=== PATIENT | female | born 1960 | race Caucasian/White ===

== ENCOUNTER 2016-12-04 16:25 | Emergency (ER) | payer MEDICAID ==
[~2016-12-04] VITALS: Ht 162.6 cm; Wt 67.9 kg
[~2016-12-04 16:25] MED LIST: ACET325T14 PO; CALC300T5 PO; CHOL500014 PO; CIPR250T2 PO; CYCL-259 PO; DOCU-30 PO; FAMO1TAB25 PO; GABA300C10 PO; HYDR-3138 PO; HYDR-3241 PO; HYDR-882 PO; MELO-184 PO; METH4TAB PO; METH4TAB2 PO; METH750T2 PO; METH750T87 PO; NAPR500T3 PO; OXYC5CAP4 PO; TRAM50TA2 PO
[2016-12-04 16:28] VITALS: BP 106/71
[2016-12-04] MEDS ORDERED: METHOCARBAMOL 750 MG TABLET PO ONE (17:00)
[2016-12-04] MEDS ORDERED: KETOROLAC 30 MG/1 ML IM ONE (17:00)
== END 2016-12-04 18:00 | disposition home or self-care (01) ==
LOC: ED 17:40
DX: S42.291A Other displaced fracture of upper end of right humerus, initial encounter for closed fracture (principal); S39.012A Strain of muscle, fascia and tendon of lower back, initial encounter; F10.10 Alcohol abuse, uncomplicated; X58.XXXA Exposure to other specified factors, initial encounter; Y93.89 Activity, other specified; Y92.89 Other specified places as the place of occurrence of the external cause; Y99.9 Unspecified external cause status
CPT/HCPCS: 29105; 72110; 99284

== ENCOUNTER 2017-03-02 10:18 | Emergency (ER) | payer MEDICAID ==
[~2017-03-02] VITALS: Ht 162.6 cm; Wt 65.0 kg
[~2017-03-02 10:18] MED LIST changes: -CHOL500014 PO; +CHOL500045 PO; +DOCU-131 PO; -DOCU-30 PO; -HYDR-3138 PO; +HYDR-3237 PO; -MELO-184 PO; +MELO15TA24 PO; +OXYC5CAP2 PO; -OXYC5CAP4 PO
[2017-03-02] MEDS ORDERED: CYCLOBENZAPRINE 10 MG TABLET ONE (10:47)
[2017-03-02] MEDS ORDERED: KETOROLAC 30 MG/1 ML ONE (10:47)
[2017-03-02 10:58] LABS: HEMATOCRIT 40.4 % (34.6-47.8); HEMOGLOBIN 13.8 g/dL (11.7-16.4); WHITE BLOOD COUNT 6.1 x10^3/uL (3.4-10)
[2017-03-02] MEDS ORDERED: KETOROLAC 30 MG/1 ML IM ONE (11:00)
[2017-03-02] MEDS ORDERED: CYCLOBENZAPRINE 10 MG TABLET PO ONE (11:00)
[2017-03-02] MEDS: PLEASE ENTER HEIGHT AND WEIGHT MC SCH (11:23)
[2017-03-02] MEDS ORDERED: THIAMINE 100MG TABLET PO ONE (11:30)
[2017-03-02 11:32] LABS: BLOOD UREA NITROGEN 10 mg/dL (7-18)
[2017-03-02 11:41] LABS: PATH.CAST-FLAG NOT PRESENT; SPERM-FLAG NOT PRESENT; SRC-FLAG NOT PRESENT; XTAL-FLAG NOT PRESENT; YLC-FLAG NOT PRESENT
[2017-03-02 14:31] VITALS: BP 125/80
== END 2017-03-02 14:33 | disposition home or self-care (01) ==
LOC: ED 11:00
DX: S32.039A Unspecified fracture of third lumbar vertebra, initial encounter for closed fracture (principal); X58.XXXA Exposure to other specified factors, initial encounter; Y93.89 Activity, other specified; Y92.89 Other specified places as the place of occurrence of the external cause; Y99.8 Other external cause status
CPT/HCPCS: 36415; 72110; 72131; 72220; 74176; 80047; 80048; 81001; 82040; 85025; 87077; 87086; 96372; 99285; J1885; 87186

== ENCOUNTER 2019-07-20 18:13 | Emergency (ER) | payer MEDICAID ==
[~2019-07-20] VITALS: Ht 165.1 cm; Wt 78.0 kg
[~2019-07-20 18:13] MED LIST changes: +HYDR-3653 PO; -HYDR-882 PO; +NAPR-685 PO; -NAPR500T3 PO
[2019-07-20 19:07] LABS: MEAN CORPUSCULAR HEMOGLOBIN 39.3 pg (27.0-34.8); MEAN CORPUSCULAR HGB CONC 35.3 g/dL (32.4-35.8); MEAN CORPUSCULAR VOLUME 111.6 fL (80-100); MEAN PLATELET VOLUME 7.1 fL (7.4-10.4); PLATELET COUNT 229 x10^3/uL (130-400); RED BLOOD COUNT 3.52 x10^6/uL (3.82-5.3)
[2019-07-20 19:15] LABS: ALBUMIN 3.4 g/dL (3.4-5.0); ANION GAP 8 mmol/L (5-15); CALCIUM 8.7 mg/dL (8.5-10.1); CHLORIDE 110 mmol/L (98-107)
[2019-07-20 19:17] LABS: BASOPHILS # (AUTO) 0.03 x10^3/uL (0-0.1); BASOPHILS % (AUTO) 1 % (0-1); EOSINOPHILS # (AUTO) 0.35 x10^3/uL (0-0.4); EOSINOPHILS % (AUTO) 7 % (1-7); LYMPHOCYTES % (AUTO) 50 % (22-44); MD MORPH REVIEW ONLY; MONOCYTES % (AUTO) 10 % (2-9); NEUTROPHILS # (AUTO) 1.66 x10^3/uL (1.8-6.8); NEUTROPHILS % (AUTO) 33 % (42-75)
[2019-07-20 19:20] LABS: ALANINE AMINOTRANSFERASE 22 U/L (12-78); ALKALINE PHOSPHATASE 139 U/L (45-117); BILIRUBIN,TOTAL 0.2 mg/dL (0.2-1.0); CREATININE 0.66 mg/dL (0.55-1.02); TOTAL PROTEIN 7.4 g/dL (6.4-8.2); TROPONIN I < 0.015 ng/mL (0.000-0.045)
--- NOTE | 2019-07-20 19:27 | NUR ---
Received report from diurnal RN and assumed patient care. Patient in bed, slurring words, does not follow commands well, impulsive in nature and day and night RN both appreciate the smell of alcohol on the patient's breath. Patient is alert and oriented. Just returned from CT scan. Awaiting radiology read for disposition.
[2019-07-20 19:36] LABS: ANISOCYTOSIS 1+
[2019-07-20 19:37] LABS: <PLATELET ESTIMATE> ADEQUATE; <PLT MORPHOLOGY> NORMAL PLT MORPH
--- NOTE | 2019-07-20 20:21 | NUR ---
RN to bedside, patient resting comfortably, asking to speak with . Relayed for third time that had been contacted at 1900, by previous RN, with second RN adjacent, and was aware of patient's location in hospital. Patient agreeable, still slurring words. Provided with warm blanket x2. Awaiting for reduction in blood alcohol for discharge.
[2019-07-20 21:50] VITALS: BP 97/52
--- NOTE | 2019-07-21 02:48 | NUR ---
pt ambulatory to the discharge desk with a steady gait. pt provided water prior to discharge. pt A+Ox4.
== END 2019-07-21 02:49 | disposition home or self-care (01) ==
LOC: ED 20:55
DX: S42.222A 2-part displaced fracture of surgical neck of left humerus, initial encounter for closed fracture (principal); W01.0XXA Fall on same level from slipping, tripping and stumbling without subsequent striking against object, initial encounter; Y93.89 Activity, other specified; Y92.59 Other trade areas as the place of occurrence of the external cause; Y99.8 Other external cause status
CPT/HCPCS: 36415; 70450; 80053; 80307; 84484; 85025; 93005; 99284

== ENCOUNTER 2019-09-22 11:46 | Emergency (ER) | payer MEDICAID ==
[~2019-09-22] VITALS: Ht 162.6 cm; Wt 77.0 kg
[2019-09-22 12:12] VITALS: BP 134/91
--- NOTE | 2019-09-22 13:02 | NUR ---
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
--- NOTE | 2019-09-22 13:05 | NUR ---
Pt here for yellow film on nose that has puss like apperance. Pt reports it started a few days ago. Pt is staying at [facility]. Pt has had a cough her whole life. pt suffers from alcoholism.
--- NOTE | 2019-09-22 13:48 | NUR ---
TASK RN: PT DISCHARGED HOME IN A STABLE CONDITION. DC INSTRUCTIONS DISCUSSED WITH PT. PT VERBALIZED UNDERSTANDING. NO FURTHER QUESTIONS OR CONCERNS EXPRESSED AT THAT TIME. PT AMBULATED OUT OF ED WITH RN WITH A STEADY GAIT.
== END 2019-09-22 13:50 | disposition home or self-care (01) ==
LOC: ED 13:04
DX: L03.211 Cellulitis of face (principal); L01.01 Non-bullous impetigo; B34.9 Viral infection, unspecified
CPT/HCPCS: 71045; 99283

== ENCOUNTER 2019-09-26 07:41 | Emergency (ER) | payer MEDICAID ==
[~2019-09-26] VITALS: Ht 162.6 cm; Wt 75.0 kg
[2019-09-26 07:47] VITALS: BP 134/49
--- NOTE | 2019-09-26 08:04 | NUR ---
PT SITTING IN BED, REMAINS IN STREET CLOTHES, NO SIGNS OF DISTRESS.
--- NOTE | 2019-09-26 09:09 | NUR ---
PT SITTING IN BED, RESPIRATIONS EVEN AND UNLABORED, NO SIGNS OF DISTRESS.
== END 2019-09-26 09:11 | disposition home or self-care (01) ==
LOC: ED 08:40
DX: J34.0 Abscess, furuncle and carbuncle of nose (principal)
CPT/HCPCS: 99283

== ENCOUNTER 2020-08-04 22:08 | Inpatient (IN) | payer MEDICAID ==
[~2020-08-04] VITALS: Ht 162.6 cm; Wt 70.7 kg
[~2020-08-04 22:08] MED LIST changes: -CYCL-259 PO; +CYCL10TA2 PO; +METH-640 PO; -METH750T2 PO
[2020-08-04] MEDS ORDERED: ONDANSETRON 2MG/ML, 2ML ONE (22:22)
[2020-08-04] MEDS ORDERED: MORPHINE SULFATE 4 MG/ML, 1ML ONE (22:23)
[2020-08-04] MEDS ORDERED: ONDANSETRON 2MG/ML, 2ML IVPush ONE (22:30)
[2020-08-04] MEDS ORDERED: MORPHINE SULFATE 4 MG/ML, 1ML IVPush PRN (22:30)
[2020-08-04 22:32] LABS: MICROSCOPIC INDICATED
[2020-08-04 22:36] LABS: BASOPHILS % (AUTO) 0 % (0-1); EOSINOPHILS % (AUTO) 0 % (1-7); LYMPHOCYTES % (AUTO) 13 % (22-44); MEAN CORPUSCULAR HEMOGLOBIN 36.4 pg (27.0-34.8); MEAN CORPUSCULAR HGB CONC 34.5 g/dL (32.4-35.8); MEAN PLATELET VOLUME 7.3 fL (7.4-10.4); MONOCYTES % (AUTO) 4 % (2-9); NEUTROPHILS % (AUTO) 83 % (42-75); PLATELET COUNT 265 x10^3/uL (130-400); RED BLOOD COUNT 4.31 x10^6/uL (3.82-5.3); RED CELL DISTRIBUTION WIDTH 13.7 % (9.6-15.2)
[2020-08-04 22:38] LABS: MD MORPH REVIEW ONLY
--- NOTE | 2020-08-04 22:43 | NUR ---
patient bib remsa for abdominal pain starting this morning, waking her out of a sleep. worsening throughout the day. now pain is unbearable. patient objectively appears in discomfort and guarding abdomen. denies N/V/D but states nausea is intermittent when the pain worsens. iv placed for lab draw and iv pain medication. antinausea medication administered with pain medication. emesis bag at bedside. vitals remain stable on RA but will closely monitor after morphine administration. call clark in reach. safety maintained. warm blanket provided.
[2020-08-04 22:48] LABS: ALANINE AMINOTRANSFERASE 19 U/L (12-78); ALBUMIN 3.7 g/dL (3.4-5.0); ANION GAP 10 mmol/L (5-15); CALCIUM 9.3 mg/dL (8.5-10.1); CHLORIDE 103 mmol/L (98-107); CREATININE 0.84 mg/dL (0.55-1.02)
[2020-08-04 22:53] LABS: ALKALINE PHOSPHATASE 137 U/L (45-117); BILIRUBIN,TOTAL 1.2 mg/dL (0.2-1.0); TOTAL PROTEIN 8.1 g/dL (6.4-8.2); TROPONIN I < 0.015 ng/mL (0.000-0.045)
[2020-08-04 23:00] LABS: <PLATELET ESTIMATE> ADEQUATE; <PLT MORPHOLOGY> NORMAL PLT MORPH; TEAR DROPS 2+
--- NOTE | 2020-08-04 23:07 | NUR ---
patient resting in bed in BAD. call clark in reach. safety maintained. reports pain has almost fully resolved after pain medication administration. denies nausea at this time. will continue to monitor.
--- NOTE | 2020-08-04 23:13 | NUR ---
patient sent for CT scan at this time
[2020-08-04] MEDS ORDERED: OMNIPAQUE 350 MG/ML, 100ML BOTTLE ONE (23:23)
--- NOTE | 2020-08-04 23:57 | NUR ---
RN noticed patient's HR elevated on monitoring at nurses station. RN in to re-assess patient and placed on secured entrance monitor. ST seen on monitor. temperature taken and 100.4. will notify Dr. Machado. safety maintained. patient reports pain has not increased since re-assessment after pain medication admin
--- NOTE | 2020-08-05 00:06 | NUR ---
notified dr. purdy of HR increase, temperature and CT has resulted. will proceed with new orders as they are ordered. will continue to monitor.
[2020-08-05] MEDS ORDERED: ACETAMINOPHEN 500 MG TABLET ONE (00:08)
[2020-08-05] MEDS ORDERED: METRONIDAZOLE PMX 500MG/100ML 100 ML ONE (00:08)
[2020-08-05] MEDS ORDERED: METRONIDAZOLE PMX 500MG/100ML 100 ML IV ONE (00:30)
[2020-08-05] MEDS ORDERED: CIPROFLOXACIN/PMX 400MG/200ML 200 ML IVPB ONE (00:30)
[2020-08-05] MEDS ORDERED: ACETAMINOPHEN 500 MG TABLET PO ONE (00:30)
[2020-08-05] MEDS ORDERED: SODIUM CHLORIDE 0.9% 1,000ML IVBOLUS ONE (00:30)
[2020-08-05] MEDS ORDERED: SODIUM CHLORIDE 0.9% 1,000 ML IV ONE (00:30)
[2020-08-05] MEDS ORDERED: ONDANSETRON 2MG/ML, 2ML IVPush PRN ×2 (00:30→01:30)
[2020-08-05] MEDS ORDERED: MORPHINE SULFATE 4 MG/ML, 1ML IVPush PRN (00:30)
--- NOTE | 2020-08-05 00:32 | NUR ---
PATIENT AMBULATED TO BATHROOM WITH STEADY GAIT. IN NAD. CALL MCNAIR IN REACH. SAFETY MAINTAINED
--- NOTE | 2020-08-05 01:08 | NUR ---
report given to Joann CARIAS
[2020-08-05] MEDS ORDERED: hydrALAzine 20 MG/ML, 1ML IVPush PRN (01:30)
[2020-08-05] MEDS ORDERED: ACETAMINOPHEN 325 MG TABLET PO PRN (01:30)
[2020-08-05 01:39] VITALS: BP 100/63
[2020-08-05 02:09] LABS: FREE T4 (FREE THYROXINE) 1.07 ng/dL (0.76-1.46)
[2020-08-05] MEDS: ENOXAPARIN 40 MG/0.4 ML SQ SCH (02:19)
[2020-08-05] MEDS: CIPROFLOXACIN/PMX 400MG/200ML 200 ML IV SCH ×2 (02:19→14:38)
[2020-08-05] MEDS: METRONIDAZOLE PMX 500MG/100ML 100 ML IV SCH ×4 (02:20→19:51)
[2020-08-05] MEDS: LACTATED RINGERS 1,000 ML IV SCH ×2 (05:28→16:14)
[2020-08-05] MEDS: morphine SULFATE 10 MG/ML, 1ML IVPush PRN ×2 (05:59→19:51)
[2020-08-05 06:51] VITALS: BP 101/65
[2020-08-05 07:52] LABS: AMPHETAMINE SCREEN, URINE Negative (Negative); BARBITURATE SCREEN, URINE Negative (Negative); BENZODIAZEPINE SCREEN, URINE Negative (Negative); CANNABINOID SCREEN, URINE Negative (Negative); COCAINE SCREEN, URINE Negative (Negative); METHADONE SCREEN, URINE Negative (Negative); OPIATE SCREEN, URINE Positive (Negative)
[2020-08-05 13:08] VITALS: BP 138/82
[2020-08-05 18:43] VITALS: BP 114/72
[2020-08-06 00:03] VITALS: BP 115/73
[2020-08-06] MEDS: LACTATED RINGERS 1,000 ML IV SCH ×3 (01:02→20:04)
[2020-08-06] MEDS: METRONIDAZOLE PMX 500MG/100ML 100 ML IV SCH ×4 (01:02→20:04)
[2020-08-06] MEDS: ENOXAPARIN 40 MG/0.4 ML SQ SCH (02:15)
[2020-08-06] MEDS: CIPROFLOXACIN/PMX 400MG/200ML 200 ML IV SCH ×2 (02:40→14:41)
[2020-08-06] MEDS: morphine SULFATE 10 MG/ML, 1ML IVPush PRN (05:55)
[2020-08-06 06:13] LABS: ANION GAP 5 mmol/L (5-15); CALCIUM 8.7 mg/dL (8.5-10.1); CHLORIDE 103 mmol/L (98-107); CREATININE 0.63 mg/dL (0.55-1.02)
[2020-08-06 06:43] VITALS: BP 114/72
[2020-08-06 07:18] LABS: BASOPHILS % (AUTO) 0 % (0-1); EOSINOPHILS % (AUTO) 0 % (1-7); LYMPHOCYTES % (AUTO) 6 % (22-44); MEAN CORPUSCULAR HEMOGLOBIN 37.3 pg (27.0-34.8); MEAN CORPUSCULAR HGB CONC 34.3 g/dL (32.4-35.8); MEAN PLATELET VOLUME 7.8 fL (7.4-10.4); MONOCYTES % (AUTO) 5 % (2-9); NEUTROPHILS % (AUTO) 88 % (42-75); PLATELET COUNT 168 x10^3/uL (130-400); RED BLOOD COUNT 3.42 x10^6/uL (3.82-5.3); RED CELL DISTRIBUTION WIDTH 13.2 % (9.6-15.2)
[2020-08-06 07:54] LABS: MD SCAN
[2020-08-06] MEDS ORDERED: MAGNESIUM HYDROXIDE 8%, 30ML UDC ONE (08:24)
[2020-08-06] MEDS: MAGNESIUM HYDROXIDE 8%, 30ML UDC PO SCH ×2 (08:26→20:04)
[2020-08-06 12:21] VITALS: BP 115/76
[2020-08-06 13:42] VITALS: BP 95/68
[2020-08-06 19:30] VITALS: BP 133/78
[2020-08-07 00:17] VITALS: BP 118/74
[2020-08-07 01:37] VITALS: BP 123/76
[2020-08-07] MEDS: METRONIDAZOLE PMX 500MG/100ML 100 ML IV SCH ×4 (01:39→19:42)
[2020-08-07] MEDS: ENOXAPARIN 40 MG/0.4 ML SQ SCH (02:48)
[2020-08-07] MEDS: CIPROFLOXACIN/PMX 400MG/200ML 200 ML IV SCH ×2 (02:48→14:55)
[2020-08-07 06:07] LABS: BASOPHILS % (AUTO) 0 % (0-1); EOSINOPHILS % (AUTO) 0 % (1-7); LYMPHOCYTES % (AUTO) 7 % (22-44); MEAN CORPUSCULAR HEMOGLOBIN 37.7 pg (27.0-34.8); MEAN CORPUSCULAR HGB CONC 34.9 g/dL (32.4-35.8); MONOCYTES % (AUTO) 6 % (2-9); NEUTROPHILS % (AUTO) 86 % (42-75); PLATELET COUNT 202 x10^3/uL (130-400); RED BLOOD COUNT 3.46 x10^6/uL (3.82-5.3)
[2020-08-07] MEDS: LACTATED RINGERS 1,000 ML IV SCH (06:14)
[2020-08-07 06:16] LABS: MD NO
[2020-08-07 06:17] LABS: ANION GAP 9 mmol/L (5-15); CALCIUM 8.7 mg/dL (8.5-10.1); CHLORIDE 100 mmol/L (98-107); CREATININE 0.59 mg/dL (0.55-1.02)
[2020-08-07 06:57] VITALS: BP 120/74
[2020-08-07] MEDS: MAGNESIUM HYDROXIDE 8%, 30ML UDC PO SCH ×2 (07:24→19:42)
[2020-08-07 13:37] VITALS: BP 119/75
[2020-08-07 18:42] VITALS: BP 133/79
[2020-08-08] MEDS ORDERED: DIPHENHYDRAMINE 25 MG CAPSULE PO PRN (01:00)
[2020-08-08 01:13] VITALS: BP 124/80
[2020-08-08] MEDS: METRONIDAZOLE PMX 500MG/100ML 100 ML IV SCH ×2 (01:38→08:23)
[2020-08-08] MEDS: ENOXAPARIN 40 MG/0.4 ML SQ SCH (02:30)
[2020-08-08] MEDS: CIPROFLOXACIN/PMX 400MG/200ML 200 ML IV SCH (04:57)
[2020-08-08 06:16] LABS: BASOPHILS % (AUTO) 1 % (0-1); EOSINOPHILS % (AUTO) 3 % (1-7); LYMPHOCYTES % (AUTO) 11 % (22-44); MEAN CORPUSCULAR HEMOGLOBIN 38.6 pg (27.0-34.8); MEAN CORPUSCULAR HGB CONC 35.6 g/dL (32.4-35.8); MONOCYTES % (AUTO) 11 % (2-9); NEUTROPHILS % (AUTO) 75 % (42-75); PLATELET COUNT 191 x10^3/uL (130-400); RED BLOOD COUNT 3.33 x10^6/uL (3.82-5.3); RED CELL DISTRIBUTION WIDTH 12.9 % (9.6-15.2)
[2020-08-08 06:26] LABS: MD NO
[2020-08-08 06:36] VITALS: BP 131/78
[2020-08-08] MEDS: MAGNESIUM HYDROXIDE 8%, 30ML UDC PO SCH (09:00)
[2020-08-08] MEDS ORDERED: CIPR250T27 PO (11:05)
[2020-08-08] MEDS ORDERED: MELA5CAP PO (11:05)
== END 2020-08-08 13:28 | disposition home or self-care (01) | DRG 872 ==
LOC: ED 08-05 00:33 → EDIP 08-05 00:48 → 4EST 08-05 01:41 → DCLOUNGE 08-08 13:12
PROVIDERS: ADMIT Family Medicine; ATTEND Hospitalist
DX: A41.9 Sepsis, unspecified organism (principal); K57.32 Diverticulitis of large intestine without perforation or abscess without bleeding; N13.6 Pyonephrosis; D75.89 Other specified diseases of blood and blood-forming organs; F10.20 Alcohol dependence, uncomplicated; B96.20 Unspecified Escherichia coli [E. coli] as the cause of diseases classified elsewhere; Z87.891 Personal history of nicotine dependence
CPT/HCPCS: 36415; 74177; 80048; 80053; 80307; 81001; 82607; 83605; 83690; 84145; 84439; 84443; 84484; 85025; 87040; 87077; 87086; 87186; 96365; 96375; 99291; G0378; J0744; J1650; J2405; Q9967; J2270; J7030; J7120